=== PATIENT | male | born 1965 | race Asian ===

== ENCOUNTER 2017-03-02 13:15 | Inpatient (IN) | payer OTHER ==
[~2017-03-02] VITALS: Ht 162.6 cm; Wt 66.9 kg
--- NOTE | ~2017-03-02 | H ---
[facility] [place] [address] HISTORY AND PHYSICAL Name: MEGHANN PEDROZA Room #: 302-P [facility] IN M.R.#: [id number] Admission: 03/02/17 Attend Phys: Stanton Salvador MD Discharge: Date of : 61 Report #: [id number] THIS REPORT FOR: //name// CC: Stanton HUSTON unknown DATE OF SERVICE: 03/02/2017 CHIEF COMPLAINT: Diarrhea. HISTORY OF PRESENT ILLNESS: The patient is a 51-year-old gentleman who was admitted to the Emergency Room with a 2 month history of diarrhea, all the information was obtained by reviewing and speaking to the ER physician and through a family friend who served as motor vehicle parts interpreter. Apparently for 2 months, he has experienced diarrhea with intermittent blood loss. He has had a very poor appetite and he lost unspecified weight, he has had some just diffuse abdominal discomfort and loss of appetite. He apparently was hospitalized about a week ago, at [facility] for his complaints per report that sounds like endoscopies were performed, though we do not have those full records, it sounds as though he was discharged home with Flagyl and Levaquin for the diarrhea. In reviewing his office records, it appeared his weight in November of this year was 144 pounds and the office visit today revealed a weight of 140 pounds. PAST MEDICAL HISTORY: Chronic hepatitis B with surface antigen positive, he had been on Epivir. There is a history of Crohn disease in his office notes, it appears that he had evaluation [place] according to office records and endoscopy, which revealed colitis due to Crohn, Pentasa 500 mg 2 caps 4 times a day was ordered along with hydrocortisone enemas, it is unclear whether he was still using these. PAST SURGICAL HISTORY: Unknown. FAMILY HISTORY: Unknown. SOCIAL HISTORY: He is , has one child. No chronic alcohol or tobacco use. ALLERGIES: No known drug allergies. MEDICATIONS: He was supposed to be on prednisone 40 mg a day, Pentasa 1000 mg q.i.d., Epivir 100 mg daily, hydrocortisone retention enema and apparently finished a course of Levaquin and metronidazole, but it does not appear that he had been taking any of these medications lately. REVIEW OF SYSTEMS: As above. [facility] [address] [place] [address] HISTORY AND PHYSICAL Name: MEGHANN PEDROZA Room #: [address] [place] [address] [place] [facility]#: [id number] Admission: 03/02/17 Attend Phys: Stanton Salvador MD Discharge: Date of : 61 Report #: [id number] PHYSICAL EXAMINATION: VITAL SIGNS: Temperature 36.7, pulse 56, respirations 18, blood pressure 108/66. GENERAL: He was asleep, resting in bed, easily arousable, no distress. HEAD AND NECK: Unremarkable. LUNGS: Clear. HEART: Regular. ABDOMEN: Soft, normoactive bowel sounds. EXTREMITIES: No cyanosis or clubbing, he has got 2+ lower extremity edema. NEUROLOGIC: Global strength is intact. LABORATORY DATA: Doppler ultrasound of legs was negative for DVT ____ blood was positive of the stool. CT of the abdomen revealed a pancolitis. Lab work was reviewed and only pertinent findings are platelet count of 82. ASSESSMENT: 1. Crohn colitis. 2. Chronic hepatitis B. 3. Chronic thrombocytopenia with platelet count of 82 in November of this year. 4. Protein calorie malnutrition. 5. Abnormal weight loss. PLAN: Empiric antibiotics have been ordered. I have discussed the case with GI team and we will see if additional colitis treatment is indicated, though [facility]. I will ask Dr. Darryl Brunner how to follow up with him in regard to the hepatitis B as he had been seen in the office by . ____ been prescribed Epivir. <ELECTRONICALLY SIGNED> By: Stanton Salvador MD 03/03/17 [id number] Stanton Salvador MD /nt
--- NOTE | ~2017-03-02 | D ---
[facility] [place] [address] DISCHARGE SUMMARY Name: MEGHANN PEDROZA Room #: 302-P [facility] IN M.R.#: [id number] Admission: 03/02/17 Attend Phys: Stanton Salvador MD Discharge: 03/05/17 Date of : 61 Report #: [id number] THIS REPORT FOR: //name// CC: Stanton SCHMIDT DATE OF SERVICE: 03/05/2017 FINAL DIAGNOSES: 1. Acute Clostridium difficile colitis. 2. Acute Crohn colitis. 3. Protein calorie malnutrition. 4. Anemia of chronic disease. 5. Chronic hepatitis B. HOSPITAL COURSE: The patient was admitted with diarrhea. He had previously been worked up and treated at [facility] where he was diagnosed with diverticulitis and given prescription for Flagyl and Levaquin. At some point, he had undergone a colonoscopy in [place] a couple of months back and was diagnosed with Crohn disease. It is not clear what happened to his medications of Pentasa and hydrocortisone enemas, but apparently, he stopped those. He also has ongoing chronic hepatitis B infection. He was admitted here and subsequently diagnosed with acute C. diff colitis with positive toxin. Vancomycin was started along with IV Flagyl. Levaquin was discontinued. GI and ID services followed him. Ultimately, he has a complicated course given active hepatitis B viral infection on top of active Crohn's and acute C. diff. There was very strong concern about adding immunosuppression in his current state. Ultimately, the GI recommendations were to transfer to a higher level of care with hepatology evaluation. His insurance company requested transfer to an in network facility as well. With assistance of social work, arrangements were made for him to transfer as an inpatient to [facility] under the care of their hospitalist with appropriate GI and hepatology Infectious Disease consultations. Discharge orders were entered and sent along with the patient. <ELECTRONICALLY SIGNED> By: Stanton Salvador MD 03/07/17 0812 [id number] Stanton Salvador MD /nt
[2017-03-02 14:00] VITALS: BP 106/68
[2017-03-02 14:07] LABS: ABSOLUTE NEUTROPHILS 3.9 thou/uL (1.4-8.2); BASOPHILS 0.2 % (0.0-2.0); EOSINOPHILS 0.2 % (0.0-3.0); HEMOGLOBIN 11.4 gm/dL (14.0-18.0); LYMPHOCYTES 20.7 % (24.0-44.0); MCH 32.8 pg (26.0-34.0); MCHC 34.6 g/dL (28.0-37.0); MCV 94.7 fL (80.0-100.0); MONOCYTES 6.9 % (1.0-8.0); RBC 3.48 mil/uL (4.50-6.00); RDW 16.2 % (10.5-14.5); WBC 5.5 thou/uL (4.0-11.0)
[2017-03-02 14:09] LABS: MANUAL DIFF NO
[2017-03-02 14:15] LABS: CALCIUM 7.8 mg/dL (8.5-10.1); CREATININE 0.8 mg/dL (0.7-1.3); POTASSIUM 4.2 mmol/L (3.5-5.1)
[2017-03-02 14:21] LABS: ALBUMIN 1.9 g/dL (3.4-5.0); DIRECT BILIRUBIN 0.2 mg/dL (<0.1-0.3); TOTAL BILIRUBIN 0.7 mg/dL (<0.1-1.0); TOTAL PROTEIN 5.8 g/dL (6.4-8.2)
[2017-03-02 14:36] LABS: PLATELET COUNT 82 thou/uL (150-400)
[2017-03-02 14:36] LABS: URINE BILIRUBIN NEGATIVE (Negative); URINE BLOOD NEGATIVE (Negative); URINE COLOR YELLOW; URINE GLUCOSE-RANDOM* NEGATIVE (Negative); URINE KETONES NEGATIVE (Negative); URINE NITRITE NEGATIVE (Negative); URINE PROTEIN (DIPSTICK) TRACE (Negative); URINE SPECIFIC GRAVITY 1.015 (1.003-1.035)
[2017-03-02 15:12] VITALS: BP 108/66
[2017-03-02 15:24] VITALS: BP 108/66
[2017-03-02 19:40] VITALS: BP 104/61
[2017-03-02 23:45] VITALS: BP 102/62
[2017-03-03 03:00] VITALS: BP 100/59
[2017-03-03 06:43] LABS: ABSOLUTE NEUTROPHILS 3.1 thou/uL (1.4-8.2); BASOPHILS 0.2 % (0.0-2.0); EOSINOPHILS 0.4 % (0.0-3.0); HEMATOCRIT 30.6 % (42.0-52.0); HEMOGLOBIN 10.6 gm/dL (14.0-18.0); LYMPHOCYTES 23.6 % (24.0-44.0); MCHC 34.8 g/dL (28.0-37.0); MCV 95.1 fL (80.0-100.0); MONOCYTES 6.9 % (1.0-8.0); PLATELET COUNT 61 thou/uL (150-400); POLYS 68.9 % (36.0-66.0); RBC 3.22 mil/uL (4.50-6.00); RDW 16.6 % (10.5-14.5); WBC 4.4 thou/uL (4.0-11.0)
[2017-03-03 06:48] LABS: MANUAL DIFF NO
[2017-03-03 06:51] LABS: ALBUMIN 1.7 g/dL (3.4-5.0); CALCIUM 7.5 mg/dL (8.5-10.1); CREATININE 0.9 mg/dL (0.7-1.3); POTASSIUM 3.7 mmol/L (3.5-5.1); TOTAL BILIRUBIN 0.6 mg/dL (<0.1-1.0); TOTAL PROTEIN 5.1 g/dL (6.4-8.2)
[2017-03-03 07:59] VITALS: BP 97/59
[2017-03-03 17:11] LABS: HEP B SURFACE Ab(ANTI-HBS Non Reactive (())
[2017-03-03 19:08] VITALS: BP 78/49
[2017-03-04 03:29] VITALS: BP 96/64
[2017-03-04 07:40] VITALS: BP 97/69
[2017-03-04 17:05] VITALS: BP 100/61
[2017-03-04 17:11] VITALS: BP 100/71
[2017-03-04 19:27] VITALS: BP 97/65
[2017-03-05 00:06] LABS: HIV ANTIBODY Non Reactive (Non Reactive)
[2017-03-05 03:36] VITALS: BP 94/66
[2017-03-05 05:11] LABS: HEMATOCRIT 30.6 % (42.0-52.0); HEMOGLOBIN 10.7 gm/dL (14.0-18.0); MCHC 34.9 g/dL (28.0-37.0); MCV 94.5 fL (80.0-100.0); RBC 3.24 mil/uL (4.50-6.00); RDW 16.4 % (10.5-14.5); WBC 5.5 thou/uL (4.0-11.0)
[2017-03-05 05:18] LABS: CALCIUM 7.2 mg/dL (8.5-10.1); CREATININE 0.8 mg/dL (0.7-1.3); POTASSIUM 3.6 mmol/L (3.5-5.1)
[2017-03-05 05:22] LABS: INR 1.3; PROTIME 13.2 Seconds (9.3-11.4)
[2017-03-05 09:15] VITALS: BP 95/66
[2017-03-05] MEDS ORDERED: VANCOMYCIN100 MG/ML PO (09:15)
[2017-03-05] MEDS ORDERED: ONDANSETRON HCL4 M1 IV PUSH (09:16)
[2017-03-05] MEDS ORDERED: FLAGYL500 MG IV (09:16)
== END 2017-03-05 17:14 | disposition short-term general hospital (02) | DRG 371 ==
LOC: ER 13:15 → EROBS 14:42 → 3N 14:42
PROVIDERS: Emergency Medicine; Internal Medicine Gastroenterology; Internal Medicine Geriatric Medicine; Specialist
DX: A04.7 Enterocolitis due to Clostridium difficile (principal); E43 Unspecified severe protein-calorie malnutrition; K50.90 Crohn's disease, unspecified, without complications; B18.1 Chronic viral hepatitis B without delta-agent; D69.6 Thrombocytopenia, unspecified; D63.8 Anemia in other chronic diseases classified elsewhere; Z68.25 Body mass index [BMI] 25.0-25.9, adult
CPT/HCPCS: 10094